=== PATIENT | male | born 1975 | race American Indian/Alaskan Native ===

== ENCOUNTER 2018-08-19 20:07 | Emergency (ER) | payer MEDICARE ==
--- NOTE | 2018-08-19 21:27 | Emergency Department Report ---
- General Chief Complaint: Upper Respiratory Infection Stated Complaint: CHEST PAIN LUPUS INFLAMMATION Time Seen by Provider: 08/19/18 21:25 Source: patient Mode of arrival: Ambulatory Limitations: No Limitations - History of Present Illness Initial Comments: 42-year-old [place] male with a past medical history Lupus comes in for cough and chest congestion 4 days. Patient states that the cough is causing chest pain. Patient states he's had chills sweats and generalized body aches. Patient reports he tried [id number] NyQuil and throat lozenges with no patient has recently relocated from [facility] to [place] and does not have a primary care provider at this time. Patient reports that he's been out of his blood pressure medication for one day. Patient reports he did not get the flu vaccination. He is on amlodipine combination but not sure what the combination is. He reports he's been on plaque with nail the past for his lupus. MD Complaint: cough -: days(s) (4) Quality: aching Consistency: constant Improves With: nothing Associated Symptoms: fever (low-grade fever of 99), chills, cough, chest pain, shortness of breath Treatments Prior to Arrival: "cold medicine" - Related Data Previous Rx's Medication Instructions Recorded Last Taken Type Acetaminophen/Codeine [Tylenol 1 tab PO Q4HR PRN #12 tablet 08/19/18 Unknown Rx /Codeine # 3 tab] Amlodipine Bes/Olmesartan Med 1 each PO QDAY #30 tablet 08/19/18 Unknown Rx [Yadira 5-20 mg Tablet] Azithromycin [Zithromax Z-RAMSES] 250 mg PO QDAY #6 tablet 08/19/18 Unknown Rx Benzonatate [Tessalon Perle] 100 mg PO TID #15 capsule 08/19/18 Unknown Rx Prednisone [predniSONE 10 mg 10 mg PO .TAPER #1 tab.ds.pk 08/19/18 Unknown Rx (6-Day Pack, 21 Tabs)] Allergies Allergy/AdvReac Type Severity Reaction Status Date / Time No Known Allergies Allergy Unverified 08/19/18 20:33 ED Review of Systems ROS: Stated complaint: CHEST PAIN LUPUS INFLAMMATION Other details as noted in HPI Constitutional: chills, fever ENT: congestion Respiratory: cough, shortness of breath Cardiovascular: chest pain ED Past Medical Hx - Past Medical History Hx Hypertension: Yes Additional medical history: SLE - Social History Smoking Status: Current Some Day Smoker Substance Use Type: Alcohol, Marijuana - Medications Home Medications: Home Medications Medication Instructions Recorded Confirmed Last Taken Type Acetaminophen/Codeine [Tylenol 1 tab PO Q4HR PRN #12 tablet 08/19/18 Unknown Rx /Codeine # 3 tab] Amlodipine Bes/Olmesartan Med 1 each PO QDAY #30 tablet 08/19/18 Unknown Rx [Yadira 5-20 mg Tablet] Azithromycin [Zithromax Z-RAMSES] 250 mg PO QDAY #6 tablet 08/19/18 Unknown Rx Benzonatate [Tessalon Perle] 100 mg PO TID #15 capsule 08/19/18 Unknown Rx Prednisone [predniSONE 10 mg 10 mg PO .TAPER #1 tab.ds.pk 08/19/18 Unknown Rx (6-Day Pack, 21 Tabs)] ED Physical Exam - General Limitations: No Limitations General appearance: alert, in no apparent distress - Head Head exam: Present: atraumatic, normocephalic - Eye Eye exam: Present: normal appearance, EOMI - ENT ENT exam: Present: mucous membranes moist - Neck Neck exam: Present: normal inspection - Respiratory Respiratory exam: Present: normal lung sounds bilaterally. Absent: respiratory distress - Cardiovascular Cardiovascular Exam: Present: regular rate, normal rhythm. Absent: systolic murmur, diastolic murmur, rubs, gallop - GI/Abdominal GI/Abdominal exam: Present: soft, normal bowel sounds - Neurological Exam Neurological exam: Present: alert, oriented X3, normal gait - Psychiatric Psychiatric exam: Present: normal affect, normal mood - Skin Skin exam: Present: warm, dry, intact, normal color. Absent: rash ED Course Vital Signs 08/19/18 08/19/18 08/19/18 20:22 22:06 23:34 Temperature 98.3 F Pulse Rate 88 72 Respiratory 16 18 18 Rate Blood Pressure 170/106 172/97 [Right] O2 Sat by Pulse 99 100 Oximetry ED Medical Decision Making - Radiology Data Radiology results: report reviewed FINAL REPORT PROCEDURE: XR CHEST ROUTINE 2V TECHNIQUE: PA and lateral chest radiographs were obtained. CPT 88955 HISTORY: cp with cough COMPARISON: No prior studies are available for comparison. FINDINGS: Heart: Normal. Mediastinum/Vessels: Normal. Lungs/Pleural space: Normal. Bony thorax: No acute osseous abnormality. Other: IMPRESSION: Normal examination. Transcribed By: [facility] [place] Dictated By: GENE CHRISTIANSEN Electronically Authenticated By: GENE CHRISTIANSEN Signed Date/Time: 08/19/182300 DD/ 03 TD/TT: 08/19/182303 Critical care attestation.: If time is entered above; I have spent that time in minutes in the direct care of this critically ill patient, excluding procedure time. ED Disposition Clinical Impression: URI (upper respiratory infection) Qualifiers: URI type: unspecified URI Qualified Code(s): J06.9 - Acute upper respiratory infection, unspecified Lupus (systemic lupus erythematosus) Qualifiers: Systemic lupus erythematosus type: unspecified Systemic lupus erythematosus organ involvement: unspecified Qualified Code(s): M32.9 - Systemic lupus erythematosus, unspecified HTN (hypertension) Qualifiers: Hypertension type: unspecified Qualified Code(s): I10 - Essential (primary) hypertension Disposition: TO HOME OR SELFCARE Is pt being admited?: No Does the pt Need Aspirin: No Condition: Stable Instructions: Upper Respiratory Infection (ED), Hypertension (ED) Additional Instructions: Please take medication as prescribed. Please follow up with the family support coordinator and primary care provider. I have listed several below for your convenience. Prescriptions: Acetaminophen/Codeine [Tylenol /Codeine # 3 tab] 1 tab PO Q4HR PRN #12 tablet PRN Reason: Pain Amlodipine Bes/Olmesartan Med [Yadira 5-20 mg Tablet] 1 each PO QDAY #30 tablet Azithromycin [Zithromax Z-RAMSES] 250 mg PO QDAY #6 tablet Benzonatate [Tessalon Perle] 100 mg PO TID #15 capsule Prednisone [predniSONE 10 mg (6-Day Pack, 21 Tabs)] 10 mg PO .TAPER #1 tab.ds.pk Referrals: YASMANY STILL MD [Primary Care Provider] - 3-5 Days KELVIN COHEN MD [Staff Physician] - 3-5 Days KANDI BOLES MD [Referring] - 3-5 Days Deana HUFFMAN MD [Referring] - 3-5 Days Forms: Accompanied Note, Work/School Release Form(ED)
[2018-08-19] MEDS ORDERED: PERCOCET 5/325 PO ONE (21:51)
[2018-08-19] MEDS ORDERED: DELTASONE PO ONE (21:51)
--- NOTE | 2018-08-19 23:01 | XRay Report ---
FINAL REPORT PROCEDURE: XR CHEST ROUTINE 2V TECHNIQUE: PA and lateral chest radiographs were obtained. CPT 81461 HISTORY: cp with cough COMPARISON: No prior studies are available for comparison. FINDINGS: Heart: Normal. Mediastinum/Vessels: Normal. Lungs/Pleural space: Normal. Bony thorax: No acute osseous abnormality. Other: IMPRESSION: Normal examination.
[2018-08-19 23:36] VITALS: BP 172/97
== END 2018-08-19 23:34 | disposition home or self-care (01) ==
LOC: ED 20:07
DX: J06.9 Acute upper respiratory infection, unspecified (principal); M32.9 Systemic lupus erythematosus, unspecified; I10 Essential (primary) hypertension; F17.200 Nicotine dependence, unspecified, uncomplicated; F12.10 Cannabis abuse, uncomplicated
CPT/HCPCS: 71046; 93005; 93010; 99283; J7512

== ENCOUNTER 2018-08-31 02:49 | Emergency (ER) | payer MEDICARE ==
[2018-08-31 04:19] LABS: Basophils # (Auto) 0.1 K/mm3 (0.0-0.1); Basophils % (Auto) 1.4 % (0.0-1.8); Eosinophils % (Auto) 0.3 % (0.0-4.3); Hematocrit 37.9 % (35.5-45.6); Hemoglobin 12.3 gm/dl (11.8-15.2); Lymphocytes # (Auto) 3.2 K/mm3 (1.2-5.4); Lymphocytes % (Auto) 44.3 % (13.4-35.0); Mean Corpuscular HGB Conc 32 % (32-34); Mean Corpuscular Volume 89 fl (84-94); Monocytes # (Auto) 0.6 K/mm3 (0.0-0.8); Monocytes % (Auto) 7.7 % (0.0-7.3); Platelet Count 246 K/mm3 (140-440); Red Blood Count 4.29 M/mm3 (3.65-5.03); Red Cell Distribution Width 14.2 % (13.2-15.2)
[2018-08-31 04:31] LABS: BUN/Creatinine Ratio 12; Blood Urea Nitrogen 15 mg/dL (9-20); Calcium 8.5 mg/dL (8.4-10.2); Hemolysis Index 4
--- NOTE | 2018-08-31 05:09 | Cat Scan Report ---
FINAL REPORT PROCEDURE: CT HEAD/BRAIN WO CON TECHNIQUE: Computerized tomography of the head was performed without contrast material. HISTORY: head injury COMPARISON: No prior studies are available for comparison. FINDINGS: Skull and scalp: Normal. Paranasal sinuses: Normal. Ventricles and subarachnoid spaces: Normal. Cerebrum: No evidence of hemorrhage, acute infarction or mass . Cerebellum and brainstem: No evidence of hemorrhage, acute infarction or mass. Vasculature: Normal. Comments: None. IMPRESSION: Normal Examination
--- NOTE | 2018-08-31 05:17 | Cat Scan Report ---
FINAL REPORT PROCEDURE: CT CERVICAL SPINE WO CON TECHNIQUE: Computerized tomography of the cervical spine was performed from the skull base to T1 wit hout contrast material. HISTORY: head injury COMPARISON: No prior studies are available for comparison. FINDINGS: The skull base and foramen magnum are intact. The cervical vertebrae are intact. C1-2: No significant abnormality. C2-3: No significant abnormality. C3-4: No significant abnormality. C4-5: No significant abnormality. C5-6: No significant abnormality. C6-7: No significant abnormality. C7-T1: No significant abnormality. Other: Soft tissues are unremarkable.. IMPRESSION: No significant abnormality.
--- NOTE | 2018-08-31 05:19 | Cat Scan Report ---
FINAL REPORT PROCEDURE: CT FACIAL BONES WO CON TECHNIQUE: Computerized tomography of the facial bones and soft tissues with axial and coronal secti ons performed from the cranial aspect of the frontal sinuses to the caudal portion of the mandible wi thout contrast material. HISTORY: head injury COMPARISON: No prior studies are available for comparison. FINDINGS: Bones: No significant abnormality. Paranasal sinuses: Clear. Soft tissues: No significant abnormality. Other: None. IMPRESSION: Normal Examination
[2018-08-31 05:33] VITALS: BP 141/82
--- NOTE | 2018-08-31 05:45 | Emergency Department Report ---
ED Head Trauma HPI - General Chief complaint: Head Injury Stated complaint: FALL/FACE INJURY Time Seen by Provider: 08/31/18 03:59 Source: patient, family Mode of arrival: Wheelchair Limitations: No Limitations - History of Present Illness Initial comments: 42-year-old male presents to ED with head/ face injury. Patient fell out of bed and hit his nose on the nightstand. Patient reports mild headache. Denies nausea and vomiting MD Complaint: head injury -: hour(s) (2) Mechanism of Injury: other (patient fell out of bed) Location: face Loss of Consciousness: unsure Place: home Severity: mild Associated Symptoms: denies: nausea, vomiting - Related Data Previous Rx's Medication Instructions Recorded Last Taken Type Acetaminophen/Codeine [Tylenol 1 tab PO Q4HR PRN #12 tablet 08/19/18 Unknown Rx /Codeine # 3 tab] Amlodipine Bes/Olmesartan Med 1 each PO QDAY #30 tablet 08/19/18 Unknown Rx [Yadira 5-20 mg Tablet] Azithromycin [Zithromax Z-RAMSES] 250 mg PO QDAY #6 tablet 08/19/18 Unknown Rx Benzonatate [Tessalon Perle] 100 mg PO TID #15 capsule 08/19/18 Unknown Rx Prednisone [predniSONE 10 mg 10 mg PO .TAPER #1 tab.ds.pk 08/19/18 Unknown Rx (6-Day Pack, 21 Tabs)] Naproxen [Naprosyn] 500 mg PO BID #20 tablet 08/31/18 Unknown Rx traMADol [Ultram] 50 mg PO Q6HR PRN #7 tablet 08/31/18 Unknown Rx Allergies/Adverse reactions: Allergies Allergy/AdvReac Type Severity Reaction Status Date / Time No Known Allergies Allergy Unverified 08/19/18 20:33 ED Review of Systems ROS: Stated complaint: FALL/FACE INJURY Other details as noted in HPI Comment: All other systems reviewed and negative ENT: other (reports nasal pain) Neurological: headache ED Past Medical Hx - Past Medical History Hx Hypertension: Yes Additional medical history: SLE, Sleep Apnea - Surgical History Past Surgical History?: No - Social History Smoking Status: Current Every Day Smoker Substance Use Type: None - Medications Home Medications: Home Medications Medication Instructions Recorded Confirmed Last Taken Type Acetaminophen/Codeine [Tylenol 1 tab PO Q4HR PRN #12 tablet 08/19/18 Unknown Rx /Codeine # 3 tab] Amlodipine Bes/Olmesartan Med 1 each PO QDAY #30 tablet 08/19/18 Unknown Rx [Yadira 5-20 mg Tablet] Azithromycin [Zithromax Z-RAMSES] 250 mg PO QDAY #6 tablet 08/19/18 Unknown Rx Benzonatate [Tessalon Perle] 100 mg PO TID #15 capsule 08/19/18 Unknown Rx Prednisone [predniSONE 10 mg 10 mg PO .TAPER #1 tab.ds.pk 08/19/18 Unknown Rx (6-Day Pack, 21 Tabs)] Naproxen [Naprosyn] 500 mg PO BID #20 tablet 08/31/18 Unknown Rx traMADol [Ultram] 50 mg PO Q6HR PRN #7 tablet 08/31/18 Unknown Rx ED Physical Exam - General Limitations: No Limitations General appearance: alert, in no apparent distress - Head Head exam: Present: atraumatic, normocephalic - Eye Eye exam: Present: normal appearance - ENT ENT exam: Present: other (abrasion to bridge of nose w/ tenderness, mild swelling) - Neck Neck exam: Present: normal inspection - Respiratory Respiratory exam: Present: normal lung sounds bilaterally. Absent: respiratory distress - Cardiovascular Cardiovascular Exam: Present: regular rate, normal rhythm - GI/Abdominal GI/Abdominal exam: Present: soft. Absent: distended - Extremities Exam Extremities exam: Present: normal inspection - Neurological Exam Neurological exam: Present: alert, oriented X3, CN II-XII intact. Absent: motor sensory deficit - Psychiatric Psychiatric exam: Present: normal affect, normal mood - Skin Skin exam: Present: warm, dry, intact, normal color ED Course Vital Signs 08/31/18 08/31/18 08/31/18 02:53 03:33 04:15 Temperature 97.9 F 97.9 F Pulse Rate 97 H 92 H 92 H Respiratory 18 18 14 Rate Blood Pressure 132/89 Blood Pressure 132/89 120/68 [Left] O2 Sat by Pulse 96 98 97 Oximetry 08/31/18 05:33 Temperature Pulse Rate 78 Respiratory 12 Rate Blood Pressure Blood Pressure 141/82 [Left] O2 Sat by Pulse 97 Oximetry - Lab Data Result diagrams: 08/31/18 04:05 08/31/18 04:05 Lab Results 08/31/18 08/31/18 08/31/18 Range/Units 04:05 04:05 04:05 WBC 7.3 (4.5-11.0) K/mm3 RBC 4.29 (3.65-5.03) M/mm3 Hgb 12.3 (11.8-15.2) gm/dl Hct 37.9 (35.5-45.6) % MCV 89 (84-94) fl MCH 29 (28-32) pg MCHC 32 (32-34) % RDW 14.2 (13.2-15.2) % Plt Count 246 (140-440) K/mm3 Lymph % (Auto) 44.3 H (13.4-35.0) % Camp % (Auto) 7.7 H (0.0-7.3) % Eos % (Auto) 0.3 (0.0-4.3) % Baso % (Auto) 1.4 (0.0-1.8) % Lymph # 3.2 (1.2-5.4) K/mm3 Camp # 0.6 (0.0-0.8) K/mm3 Eos # 0.0 (0.0-0.4) K/mm3 Baso # 0.1 (0.0-0.1) K/mm3 Seg Neutrophils % 46.3 (40.0-70.0) % Seg Neutrophils # 3.4 (1.8-7.7) K/mm3 Sodium 137 (137-145) mmol/L Potassium 4.2 (3.6-5.0) mmol/L Chloride 106.1 (98-107) mmol/L Carbon Dioxide 23 (22-30) mmol/L Anion Gap 12 mmol/L BUN 15 (9-20) mg/dL Creatinine 1.3 (0.8-1.5) mg/dL Estimated GFR > 60 ml/min BUN/Creatinine Ratio 12 % Glucose 123 H (75-100) mg/dL Calcium 8.5 (8.4-10.2) mg/dL Plasma/Serum Alcohol < 0.01 (0-0.07) % - Radiology Data Radiology results: report reviewed, image reviewed - Medical Decision Making Patient is alert and oriented 3. Workup unremarkable with normal CT scans. Will discharge at this time. Return precautions given. - Differential Diagnosis intracranial bleed, intoxication, fracture Critical care attestation.: If time is entered above; I have spent that time in minutes in the direct care of this critically ill patient, excluding procedure time. ED Disposition Clinical Impression: Fall, Head injury, Contusion of nose Disposition: DC- TO HOME OR SELFCARE Is pt being admited?: No Condition: Stable Instructions: Minor Head Injury (ED) Prescriptions: Naproxen [Naprosyn] 500 mg PO BID #20 tablet traMADol [Ultram] 50 mg PO Q6HR PRN #7 tablet PRN Reason: Pain Referrals: CHELSEA MCGARRY MD [Primary Care Provider] - 3-5 Days PRIMARY CAREMD [Referring] - 3-5 Days [facility] [Provider Group] - 3-5 Days Forms: Work/School Release Form(ED) Time of Disposition: 05:51
== END 2018-08-31 06:37 | disposition home or self-care (01) ==
LOC: ED 02:49
DX: S00.33XA Contusion of nose, initial encounter (principal); I10 Essential (primary) hypertension; F17.200 Nicotine dependence, unspecified, uncomplicated; W06.XXXA Fall from bed, initial encounter; Y93.89 Activity, other specified; Y92.009 Unspecified place in unspecified non-institutional (private) residence as the place of occurrence of the external cause; Y99.8 Other external cause status
CPT/HCPCS: 36415; 70450; 70486; 72125; 80048; 85025; 93005; 93010; 99284; G0480; 80320